=== PATIENT | female | born 1960 | race Caucasian/White ===

== ENCOUNTER 2021-01-05 09:26 | Observation (INO) ==
[2021-01-05 10:02] LABS: Bacteria,Urine Few per hpf (None-Few); Bilirubin,Urine Negative (Negative); Blood,Urine Negative (Negative); Clarity,Urine Clear (Clear); Color,Urine Yellow (Yellow); Glucose,Urine (UA) Normal (Normal); Ketones,Urine 10 mg/dL (Negative); Leukocyte Esterase,Urine Negative (Negative); Mucus,Urine Few per lpf (None-Few); Nitrite,Urine Negative (Negative); PH,Urine 6.5 pH Units (5.0-8.0); Protein,Urine 30 mg/dL (Neg-Trace); RBC,Urine 0-3 per hpf (0-3); Specific Gravity,Urine > 1.030 (1.010-1.025); Squamous Epithelial Cell,Urine Few per hpf (None-Few); Urobilinogen,Urine Normal (Normal); WBC,Urine 0-3 per hpf (0-3)
[2021-01-05] MEDS ORDERED: 0.9 % Sodium Chloride 1,000 ML IVC ONE (10:18)
[2021-01-05] MEDS ORDERED: Isovue-370 500 ML BOTTLE IVP ONE (10:19)
[2021-01-05 10:31] LABS: Basophils % 0.2 %; Eosinophils % 0.2 %; Hematocrit 43.5 % (35.3-44.9); Hemoglobin 14.1 g/dL (11.5-15.4); Immature Granulocytes % 0.2 % (0-4); Lymphocytes # 0.8 K/mcL (0.6-4.6); Lymphocytes % 15.7 %; Mean Corpuscular HGB Conc 32.4 g/dL (31.6-35.5); Mean Corpuscular Hemoglobin 32.1 pg (28.0-33.3); Mean Corpuscular Volume 99.1 fL (83.0-100.0); Mean Platelet Volume 9.2 fL (9.4-12.4); Monocytes # 0.3 K/mcL (0.0-1.3); Monocytes % 5.5 %; Neutrophils # 3.7 K/mcL (1.6-8.9); Platelet Count 149 K/mcL (140-400); Red Blood Count 4.39 M/mcL (3.82-4.97); Red Cell Distribution Width 13.2 % (11.5-14.5); Segmented Neutrophils % 78.2 %; White Blood Count 4.8 K/mcL (4.3-11.1)
[2021-01-05 10:55] LABS: Alanine Aminotransferase 45 Units/L (7-52); Albumin 4.6 g/dL (3.5-5.7); Albumin/Globulin Ratio 1.5 (1.1-2.2); Alkaline Phosphatase 127 Units/L (34-104); Aspartate Amino Transferase 45 Units/L (13-39); BUN/Creatinine Ratio 14 (6-26); Bilirubin,Direct 0.1 mg/dL (0.0-0.2); Bilirubin,Indirect 0.2 mg/dL (0.0-1.0); Bilirubin,Total 0.3 mg/dL (0.3-1.0); Blood Urea Nitrogen 9 mg/dL (6-20); Calcium 9.3 mg/dL (8.6-10.3); Carbon Dioxide 25 mEq/L (23-29); Chloride 103 mEq/L (98-107); Glucose 119 mg/dL (70-105); Lipase 10 Units/L (11-82); Osmolality,Calculated 288 (280-300); Potassium 3.9 mEq/L (3.5-5.1); Sodium 139 mEq/L (136-145); Total Protein 7.6 g/dL (6.4-8.9); eGFR For African Americans > 60 (> 60); eGFR For Non-African Americans > 60 (> 60)
[2021-01-05] MEDS ORDERED: *HR* HYDROmorphone (PF) 1 MG/ML SYRINGE IVP ONE (11:13)
[2021-01-05] MEDS ORDERED: Ondansetron 4 MG/2 ML VIAL ONE ×2 (12:04→21:20)
[2021-01-05] MEDS ORDERED: Ondansetron 4 MG/2 ML VIAL IVP ONE (12:06)
[2021-01-05] MEDS ORDERED: Ondansetron 4 MG/2 ML VIAL IVP STA (12:49)
[2021-01-05] MEDS ORDERED: Metoclopramide 10 MG/2 ML VIAL IVP ONE (13:23)
[2021-01-05] MEDS ORDERED: 0.9 % Sodium Chloride 1,000 ML IVC SCH (15:00)
[2021-01-05] MEDS ORDERED: Clindamycin 900 MG/50 ML 900 MG/50 ML IV.SOLN IVPB ONE (15:56)
[2021-01-05] MEDS ORDERED: Acetaminophen IV 1,000 MG/100 ML BAG IVPB SCH (18:00)
[2021-01-05] MEDS ORDERED: Scopolamine Patch 1.5 MG PATCH.TD72 ONE (20:41)
[2021-01-05] MEDS ORDERED: *HR* FentaNYL (PF) 100 MCG/2 ML VIAL ONE (20:43)
[2021-01-05] MEDS ORDERED: Metoclopramide 10 MG/2 ML VIAL ONE (20:48)
[2021-01-05] MEDS ORDERED: Promethazine 6.25 MG in Water for inj. (sterile) 20 ML IVPB PRN (21:09)
[2021-01-05] MEDS ORDERED: *HR* HYDROmorphone PF 0.5 MG/0.5 ML SYRINGE IVP PRN (21:09)
[2021-01-05] MEDS ORDERED: Dexamethasone 4 MG/ML VIAL ONE (21:20)
[2021-01-05] MEDS: Acetaminophen IV 1,000 MG/100 ML BAG IVPB SCH (23:42)
[2021-01-05] MEDS: Ondansetron 4 MG/2 ML VIAL IVP SCH (23:42)
[2021-01-06] MEDS: Ondansetron 4 MG/2 ML VIAL IVP SCH ×2 (05:47→12:51)
[2021-01-06] MEDS: Acetaminophen IV 1,000 MG/100 ML BAG IVPB SCH ×2 (05:47→12:28)
[2021-01-06] MEDS ORDERED: Pantoprazole 40 MG VIAL IVP SCH ×2 (06:30→09:00)
[2021-01-06] MEDS ORDERED: Aspirin Enteric Coated 81 MG Tablet PO SCH (09:00)
[2021-01-06 12:15] VITALS: BP 122/75
== END 2021-01-06 14:56 | disposition home or self-care (01) ==
LOC: EMEROOARM 09:26 → 3BNU 09:26
PROVIDERS: ADMIT Surgery; ATTEND Surgery

== ENCOUNTER 2021-01-07 03:49 | Observation (INO) ==
[2021-01-07] MEDS ORDERED: 0.9 % Sodium Chloride 1,000 ML IVC ONE ×2 (04:05→04:23)
[2021-01-07] MEDS ORDERED: Isovue-370 500 ML BOTTLE IVP ONE (04:06)
[2021-01-07 04:31] LABS: Basophils % 0.4 %; Eosinophils % 0.5 %; Hematocrit 37.1 % (35.3-44.9); Immature Granulocytes % 0.4 % (0-4); Lymphocytes # 0.9 K/mcL (0.6-4.6); Lymphocytes % 15.2 %; Mean Corpuscular HGB Conc 32.9 g/dL (31.6-35.5); Mean Corpuscular Hemoglobin 31.7 pg (28.0-33.3); Mean Corpuscular Volume 96.4 fL (83.0-100.0); Monocytes # 0.2 K/mcL (0.0-1.3); Monocytes % 3.2 %; Neutrophils # 4.5 K/mcL (1.6-8.9); Platelet Count 153 K/mcL (140-400); Red Blood Count 3.85 M/mcL (3.82-4.97); Red Cell Distribution Width 13.3 % (11.5-14.5); Segmented Neutrophils % 80.3 %; White Blood Count 5.7 K/mcL (4.3-11.1)
[2021-01-07 04:43] LABS: Hemoglobin 12.2 g/dL (11.5-15.4)
[2021-01-07 04:49] LABS: Alanine Aminotransferase 128 Units/L (7-52); Albumin 3.9 g/dL (3.5-5.7); Albumin/Globulin Ratio 1.5 (1.1-2.2); Alkaline Phosphatase 118 Units/L (34-104); Aspartate Amino Transferase 129 Units/L (13-39); BUN/Creatinine Ratio 14 (6-26); Bilirubin,Direct 0.1 mg/dL (0.0-0.2); Bilirubin,Indirect 0.2 mg/dL (0.0-1.0); Bilirubin,Total 0.3 mg/dL (0.3-1.0); Blood Urea Nitrogen 11 mg/dL (6-20); Calcium 8.5 mg/dL (8.6-10.3); Carbon Dioxide 26 mEq/L (23-29); Chloride 104 mEq/L (98-107); Globulin 2.6 g/dL (2.4-3.5); Glucose 124 mg/dL (70-105); Lipase 16 Units/L (11-82); Osmolality,Calculated 287 (280-300); Potassium 3.8 mEq/L (3.5-5.1); Sodium 138 mEq/L (136-145); Total Protein 6.5 g/dL (6.4-8.9); Troponin I < 0.03 ng/mL (< 0.04); eGFR For African Americans > 60 (> 60); eGFR For Non-African Americans > 60 (> 60)
[2021-01-07] MEDS ORDERED: *HR* FentaNYL (PF) 100 MCG/2 ML VIAL IVP ONE (04:57)
[2021-01-07 05:39] LABS: Adenovirus Not Detected (Not Detect); Bordetella Pertussis Not Detected (Not Detect); Chlamydophila pneumoniae Not Detected (Not Detect); Coronavirus 229E Not Detected (Not Detect); Coronavirus HKU1 Not Detected (Not Detect); Coronavirus NL63 Not Detected (Not Detect); Coronavirus OC43 Not Detected (Not Detect); Human Metapneumovirus Not Detected (Not Detect); Human Rhinovirus/Enterovirus Not Detected (Not Detect); Influenza A Subtype 2009 H1 Not Detected (Not Detect); Influenza B Not Detected (Not Detect); Mycoplasma pneumoniae Not Detected (Not Detect); Parainfluenza Virus 1 Not Detected (Not Detect); Parainfluenza Virus 2 Not Detected (Not Detect); Parainfluenza Virus 3 Not Detected (Not Detect); Parainfluenza Virus 4 Not Detected (Not Detect); Respiratory Syncytial Virus Not Detected (Not Detect); SARS-CoV-2 Not Detected (Not Detect)
[2021-01-07 05:44] LABS: Bilirubin,Urine Negative (Negative); Blood,Urine Negative (Negative); Clarity,Urine Clear (Clear); Color,Urine Light-Yellow (Yellow); Glucose,Urine (UA) Normal (Normal); Ketones,Urine Negative (Negative); Leukocyte Esterase,Urine Negative (Negative); Nitrite,Urine Negative (Negative); Protein,Urine Negative (Neg-Trace); Specific Gravity,Urine > 1.030 (1.010-1.025); Urobilinogen,Urine Normal (Normal)
[2021-01-07] MEDS ORDERED: Piperacillin/Tazobactam 3.375 GM in 0.9 % Sodium Chloride Mini Bag 100 ML IVPB ONE (06:36)
[2021-01-07] MEDS ORDERED: *HR* HYDROmorphone (PF) 1 MG/ML SYRINGE IVP ONE (07:33)
[2021-01-07] MEDS ORDERED: Morphine Sulfate 2 MG/ML SYRINGE IVP ONE (07:45)
[2021-01-07] MEDS ORDERED: Naloxone 0.4 MG/ML INJ IVP PRN (07:58)
[2021-01-07] MEDS ORDERED: *HR* OxyCODONE Immed Rel 5 MG TABLET PO PRN (07:58)
[2021-01-07 08:58] LABS: Thyroid Stimulating Hormone 0.624 mcIU/mL (0.340-5.600)
[2021-01-07 09:23] LABS: Estimated Average Glucose 117 mg/dl; Hemoglobin A1C 5.7 %
[2021-01-07] MEDS: Acetaminophen 325 MG TABLET PO PRN (11:42)
[2021-01-07] MEDS: Ibuprofen 400 MG TABLET PO PRN (16:15)
[2021-01-07 16:54] LABS: Rheumatoid Factor 11 IU/mL (Less than 14)
[2021-01-07 17:04] LABS: Procalcitonin 0.12 ng/mL (0.00-0.15)
[2021-01-07 17:22] LABS: EBV Virus Capsid Ag IgM Ab Negative (Negative)
[2021-01-07 17:36] LABS: Hepatitis B Surface Antigen Nonreactive (Nonreactive)
[2021-01-07 18:04] LABS: Hepatitis B Core IgM Nonreactive (Nonreactive); Hepatitis C Virus Antibody Nonreactive (Nonreactive)
[2021-01-07 18:05] LABS: HIV-1&2 Antibody & p24 Ag Nonreactive (Nonreactive)
[2021-01-07 22:33] LABS: Hepatitis A Antibody IgM Nonreactive (Nonreactive)
[2021-01-08] MEDS: Ondansetron 4 MG/2 ML VIAL IVP PRN (02:01)
[2021-01-08] MEDS: Acetaminophen 325 MG TABLET PO PRN (03:35)
[2021-01-08 09:18] LABS: Chlamydia Trachomatis DNA Ur NOT DETECTED (Not Detect)
[2021-01-08 10:15] LABS: Hematocrit 33.2 % (35.3-44.9); Hemoglobin 10.9 g/dL (11.5-15.4); Mean Corpuscular HGB Conc 32.8 g/dL (31.6-35.5); Mean Corpuscular Hemoglobin 31.5 pg (28.0-33.3); Mean Platelet Volume 8.9 fL (9.4-12.4); Platelet Count 140 K/mcL (140-400); Red Blood Count 3.46 M/mcL (3.82-4.97); Red Cell Distribution Width 13.4 % (11.5-14.5); White Blood Count 4.1 K/mcL (4.3-11.1)
[2021-01-08 10:35] LABS: Alanine Aminotransferase 177 Units/L (7-52); Albumin 3.4 g/dL (3.5-5.7); Albumin/Globulin Ratio 1.4 (1.1-2.2); Alkaline Phosphatase 227 Units/L (34-104); Aspartate Amino Transferase 130 Units/L (13-39); BUN/Creatinine Ratio 13 (6-26); Bilirubin,Total 0.3 mg/dL (0.3-1.0); Blood Urea Nitrogen 8 mg/dL (6-20); Calcium 8.4 mg/dL (8.6-10.3); Carbon Dioxide 28 mEq/L (23-29); Chloride 104 mEq/L (98-107); Globulin 2.4 g/dL (2.4-3.5); Glucose 137 mg/dL (70-105); Osmolality,Calculated 288 (280-300); Potassium 3.4 mEq/L (3.5-5.1); Sodium 139 mEq/L (136-145); Total Protein 5.8 g/dL (6.4-8.9); eGFR For African Americans > 60 (> 60); eGFR For Non-African Americans > 60 (> 60)
[2021-01-08] MEDS: Ibuprofen 400 MG TABLET PO PRN (10:52)
[2021-01-08] MEDS ORDERED: Acetaminophen/Butalbital/CaffeineTABLET PO PRN (16:48)
[2021-01-08 18:19] LABS: Complement C3 168 mg/dL (87-200)
[2021-01-08] MEDS: *HR* OxyCODONE/APAP 5/325 TABLET PO SCH (20:30)
[2021-01-09] MEDS: *HR* OxyCODONE/APAP 5/325 TABLET PO SCH ×7 (00:53→20:51)
[2021-01-09 06:06] LABS: Hematocrit 34.3 % (35.3-44.9); Hemoglobin 11.2 g/dL (11.5-15.4); Mean Corpuscular HGB Conc 32.7 g/dL (31.6-35.5); Mean Corpuscular Hemoglobin 31.9 pg (28.0-33.3); Mean Corpuscular Volume 97.7 fL (83.0-100.0); Mean Platelet Volume 9.1 fL (9.4-12.4); Platelet Count 149 K/mcL (140-400); Red Blood Count 3.51 M/mcL (3.82-4.97); Red Cell Distribution Width 13.1 % (11.5-14.5); White Blood Count 4.1 K/mcL (4.3-11.1)
[2021-01-09 06:27] LABS: Alanine Aminotransferase 153 Units/L (7-52); Albumin 3.5 g/dL (3.5-5.7); Albumin/Globulin Ratio 1.5 (1.1-2.2); Alkaline Phosphatase 188 Units/L (34-104); Aspartate Amino Transferase 94 Units/L (13-39); BUN/Creatinine Ratio 15 (6-26); Bilirubin,Total 0.3 mg/dL (0.3-1.0); Blood Urea Nitrogen 9 mg/dL (6-20); Calcium 8.5 mg/dL (8.6-10.3); Carbon Dioxide 28 mEq/L (23-29); Chloride 105 mEq/L (98-107); Globulin 2.4 g/dL (2.4-3.5); Glucose 115 mg/dL (70-105); Osmolality,Calculated 290 (280-300); Potassium 3.7 mEq/L (3.5-5.1); Sodium 140 mEq/L (136-145); Total Protein 5.9 g/dL (6.4-8.9); eGFR For African Americans > 60 (> 60); eGFR For Non-African Americans > 60 (> 60)
[2021-01-09] MEDS: Ondansetron 4 MG/2 ML VIAL IVP PRN (09:10)
[2021-01-09] MEDS: predniSONE 20 MG TABLET PO SCH (13:52)
[2021-01-09] MEDS: Ibuprofen 400 MG TABLET PO PRN (15:59)
[2021-01-10] MEDS: *HR* OxyCODONE/APAP 5/325 TABLET PO SCH ×3 (00:45→08:39)
[2021-01-10 04:47] LABS: Basophils % 0.2 %; Eosinophils % 0.2 %; Hematocrit 34.8 % (35.3-44.9); Hemoglobin 11.7 g/dL (11.5-15.4); Immature Granulocytes % 0.6 % (0-4); Lymphocytes # 0.8 K/mcL (0.6-4.6); Lymphocytes % 15.8 %; Mean Corpuscular HGB Conc 33.6 g/dL (31.6-35.5); Mean Corpuscular Hemoglobin 32.4 pg (28.0-33.3); Mean Corpuscular Volume 96.4 fL (83.0-100.0); Mean Platelet Volume 9.2 fL (9.4-12.4); Monocytes # 0.2 K/mcL (0.0-1.3); Monocytes % 3.9 %; Neutrophils # 3.9 K/mcL (1.6-8.9); Platelet Count 206 K/mcL (140-400); Red Blood Count 3.61 M/mcL (3.82-4.97); Red Cell Distribution Width 12.5 % (11.5-14.5); Segmented Neutrophils % 79.3 %; White Blood Count 4.9 K/mcL (4.3-11.1)
[2021-01-10 05:07] LABS: Alanine Aminotransferase 144 Units/L (7-52); Albumin 3.5 g/dL (3.5-5.7); Albumin/Globulin Ratio 1.3 (1.1-2.2); Alkaline Phosphatase 170 Units/L (34-104); Aspartate Amino Transferase 63 Units/L (13-39); BUN/Creatinine Ratio 22 (6-26); Bilirubin,Total 0.3 mg/dL (0.3-1.0); Blood Urea Nitrogen 11 mg/dL (6-20); Calcium 9.1 mg/dL (8.6-10.3); Carbon Dioxide 27 mEq/L (23-29); Chloride 106 mEq/L (98-107); Globulin 2.7 g/dL (2.4-3.5); Glucose 160 mg/dL (70-105); Magnesium 1.7 mg/dL (1.6-2.6); Osmolality,Calculated 295 (280-300); Phosphorous 3.3 mg/dL (2.7-4.5); Sodium 141 mEq/L (136-145); Total Protein 6.2 g/dL (6.4-8.9); eGFR For African Americans > 60 (> 60); eGFR For Non-African Americans > 60 (> 60)
[2021-01-10 06:54] VITALS: BP 155/78
[2021-01-10] MEDS: predniSONE 20 MG TABLET PO SCH (07:32)
[2021-01-10] MEDS ORDERED: Aspirin Enteric Coated 81 MG Tablet PO SCH (09:00)
[2021-01-10] MEDS ORDERED: Lactobacillus 1 EACH CAP.SPRINK PO SCH (09:00)
[2021-01-10 09:51] LABS: ANA IgG by ELISA NONE DETECTED (None Detected)
[2021-01-12 14:31] LABS: Histone Antibody, IgG 0.5 Units (0.0-0.9)
== END 2021-01-10 12:03 | disposition home or self-care (01) ==
LOC: EMEROOARM 03:49 → 3BNU 03:49 → SUATTDRO 08:41 → 3BNU 09:30
PROVIDERS: ADMIT Internal Medicine; ATTEND Internal Medicine